=== PATIENT | male | born 1935 | race Caucasian/White ===

== ENCOUNTER → 2016-11-14 | Outpatient (CLI) | payer MEDICARE | END | disposition home or self-care (01) | LOC: PCVCCLINIC 10:35 | PROVIDERS: ATTEND Internal Medicine Cardiovascular Disease | DX: I10 Essential (primary) hypertension (principal); I25.5 Ischemic cardiomyopathy; E78.00 Pure hypercholesterolemia, unspecified; I73.9 Peripheral vascular disease, unspecified; I25.10 Atherosclerotic heart disease of native coronary artery without angina pectoris; I82.409 Acute embolism and thrombosis of unspecified deep veins of unspecified lower extremity; Z79.82 Long term (current) use of aspirin; Z87.891 Personal history of nicotine dependence; Z79.01 Long term (current) use of anticoagulants; Z79.899 Other long term (current) drug therapy | CPT/HCPCS: 80061; 85610; 93005; G0463 ==

== ENCOUNTER → 2017-08-30 | Outpatient (CLI) | payer MEDICARE | END | disposition home or self-care (01) | LOC: PCVCCLINIC 11:53 | DX: I10 Essential (primary) hypertension (principal); I25.10 Atherosclerotic heart disease of native coronary artery without angina pectoris; R55 Syncope and collapse; R29.6 Repeated falls; R09.89 Other specified symptoms and signs involving the circulatory and respiratory systems; I73.9 Peripheral vascular disease, unspecified; R94.31 Abnormal electrocardiogram [ECG] [EKG]; Z95.1 Presence of aortocoronary bypass graft; Z87.891 Personal history of nicotine dependence; Z79.899 Other long term (current) drug therapy; Z79.82 Long term (current) use of aspirin | CPT/HCPCS: 80061; 93005; G0463 ==

== ENCOUNTER → 2017-08-30 | Outpatient (CLI) | payer MEDICARE | END | disposition home or self-care (01) | LOC: PCVCIMAG 11:56 | DX: I65.23 Occlusion and stenosis of bilateral carotid arteries (principal); R55 Syncope and collapse; I10 Essential (primary) hypertension; I25.10 Atherosclerotic heart disease of native coronary artery without angina pectoris; I73.9 Peripheral vascular disease, unspecified; R29.6 Repeated falls; R09.89 Other specified symptoms and signs involving the circulatory and respiratory systems; I35.1 Nonrheumatic aortic (valve) insufficiency; R94.31 Abnormal electrocardiogram [ECG] [EKG]; Z79.899 Other long term (current) drug therapy; Z79.82 Long term (current) use of aspirin; Z79.01 Long term (current) use of anticoagulants; Z95.1 Presence of aortocoronary bypass graft | CPT/HCPCS: 80061; 93005; 93306; 93880; G0463 ==

== ENCOUNTER → 2018-04-17 | Outpatient (CLI) | payer MEDICARE | END | disposition home or self-care (01) | LOC: PCVCCLINIC 10:26 | PROVIDERS: ATTEND Internal Medicine Cardiovascular Disease | DX: I25.10 Atherosclerotic heart disease of native coronary artery without angina pectoris (principal); I25.5 Ischemic cardiomyopathy; I73.9 Peripheral vascular disease, unspecified; I82.409 Acute embolism and thrombosis of unspecified deep veins of unspecified lower extremity; I48.0 Paroxysmal atrial fibrillation; I12.9 Hypertensive chronic kidney disease with stage 1 through stage 4 chronic kidney disease, or unspecified chronic kidney disease; N18.3 Chronic kidney disease, stage 3 (moderate); E78.00 Pure hypercholesterolemia, unspecified; K21.9 Gastro-esophageal reflux disease without esophagitis; Z95.1 Presence of aortocoronary bypass graft; Z88.8 Allergy status to other drugs, medicaments and biological substances; Z79.82 Long term (current) use of aspirin; Z79.899 Other long term (current) drug therapy | CPT/HCPCS: 36415; 80061; 93005; G0463 ==

== ENCOUNTER → 2018-05-01 | Outpatient (CLI) | payer MEDICARE ==
[~2018-05-01] MED LIST: REGADENOSON 0.4 MG/5 ML DISP.SYRIN. IV ONE
--- NOTE | 2018-05-01 12:05 | PCVCIMAG ---
APPROVED REPORT Study performed: 05/01/2018 08:44:23 EXAM: Comprehensive 2D, Doppler, and color-flow Echocardiogram Patient Location: Echo lab Status: routine BSA: 2.23 HR: 84 bpmBP: 144/90 mmHg Rhythm: Atrial Fibrillation Other Information Study Quality: Adequate Indications Atrial Fibrillation CAD ischemic cardiomyopathy 2D Dimensions IVSd: 14.54 (7-11mm) LVDd: 50.02 mm PWd: 13.54 (7-11mm)Ascending Ao: 43.69 (22-36mm) LVDs: 38.33 (25-40mm) Left Atrium: 37.19 (27-40mm) Aortic Root: 42.34 mm LV Single Plane 4CH: 37.56 % LV Single Plane 2CH: 49.32 % Biplane EF: 44.5 % Volumes Left Atrial Volume (Systole) Single Plane 4CH: 77.07 mLSingle Plane 2CH: 106.72 mL LA ESV Index: 43.00 mL/m2 Aortic Valve AoV Peak Alejandro.: 1.26 m/s AO Peak Gr.: 6.36 mmHgLVOT Max P.17 mmHg LVOT Max V: 0.74 m/s AI Vmax: 5.43 m/s AI [place]: 3.27 m/s2 AI PHT: 483.91 ms Pulmonary Valve PV Peak Alejandro.: 0.72 m/sPV Peak Gr.: 2.09 mmHg Tricuspid Valve TR Peak Alejandro.: 2.51 m/s TR Peak Gr.: 25.22 mmHg Left Ventricle The left ventricle is normal size. There is normal LV segmental wall motion. Moderate concentric left ventricular hypertrophy. Left ventricular systolic function is mildly decreased globally. LVEF is 45%. This study is not technically sufficient to allow evaluation of the LV diastolic function due to atrial fibrillation. Right Ventricle The right ventricle is normal size. The right ventricular systolic function is normal. Atria Left atrium is moderately dilated. The right atrium size is normal. Aortic Valve The aortic valve is normal in structure. Moderate aortic regurgitation. There is no aortic valvular stenosis. Mitral Valve The mitral valve is normal in structure. There is no mitral valve regurgitation noted. No evidence of mitral valve stenosis. Tricuspid Valve The tricuspid valve is normal in structure. Mild tricuspid regurgitation with PAP of 32 mmHg. Pulmonic Valve The pulmonary valve is normal in structure. Mild pulmonic regurgitation. Great Vessels Aortic root is mildly dilated to 4.2 cm. The ascending aorta is mild-moderately dilated to 4.4 cm. IVC is normal in size and collapses >50% with inspiration. Pericardium There is no pericardial effusion. There is no pleural effusion. <Conclusion> The left ventricle is normal size. Moderate concentric left ventricular hypertrophy. LVEF is 45%. This study is not technically sufficient to allow evaluation of the LV diastolic function due to atrial fibrillation. The right ventricle is normal size. Left atrium is moderately dilated. Moderate aortic regurgitation. Moderate aortic regurgitation. There is no mitral valve regurgitation noted. Mild tricuspid regurgitation with PAP of 32 mmHg. Aortic root is mildly dilated to 4.2 cm. There is no pericardial effusion.
--- NOTE | 2018-05-01 16:42 | PCVCIMAG ---
APPROVED REPORT Imaging Protocol: Rest Tc-99m/Stress Tc-99m 1 day Study performed: 05/01/2018 10:29:11 Indication: CAD, Cardiomyopathy Patient Location: Out-Patient Stress Nurse: Rosalinda Daniel RN, Libby Rudd RN ME Tech:Jazmín Nick [facility] Ht: 5 ft 9 in Wt: 240 lbs BSA: 2.23 m2 HR: 75 bpm BP: 164/73 mmHg BMI: 35.4 Rhythm: Atrial Fibrillation Medical History Medical History: PVD, CAD Medications: ASA, Irbesartan-HCTZ, Bystolic, Crestor Allergies: Levaquin, Pravastatin Cardiac Risk Factors: Age Previous Cardiac Procedures: CABG Pretest Chest Pain Characteristics: No chest pain Exercise History: Sedentary Physical Disabilities: Back, uses a cane Meds Held (24 hrs): Bystolic Resting Data Rest SPECT myocardial perfusion imaging was performed in supine position 45 minutes following the intravenous injection of 10.6 mCi of Tc-99m Sestamibi. Time of rest injection: 0940 Date: 05/01/2018 Administration Route: IV Administration Site: Right AC Pharmacologic Stress Pharmacologic stress test was performed by injecting Regadenoson 0.4 mg IV push over 10-15 seconds immediately followed by the intravenous injection of 33.2 mCi of Tc-99m Sestamibi. Time of stress injection: 1100 Date: 05/01/2018 Administration Route: IV Administration Site: Right AC Gated Stress SPECT was performed 45 minutes after stress injection. The images were gated to evaluate regional wall motion and calculate left ventricular ejection fraction. Stress Test Details Stress Test: Pharmacologic stress testing performed using 0.4 mg of regadenoson per 5 mL given IV over 10 seconds. Reason for pharmacologic stress test: uses a cane. HRMax Heart Rate (APMHR): 137 bpm Resting HR: 75 bpmTarget HR (85% APMHR): 116 bpm Max HR Achieved: 99 bpm % of APMHR: 72 Recovery HR: 82 bpm BP Resting BP: 164/73 mmHg Max BP: 162/79 mmHg Recovery BP: 157/72 mmHg ECG Resting ECG: Atrial Fibrillation Stress ECG: Atrial Fibrillation Recovery ECG: Atrial Fibrillation Clinical Reason for Termination: Completed protocol Stress Symptoms: Dyspnea, Lightheaded Exercise duration: 0 min 55 sec Symptoms resolved during recovery. Stress ECG Conclusion ECG: Non-ischemic Study Quality Study: Good Study Data Post stress, the left ventricular ejection was 61%.. SSS: 0 SRS: 0 SDS: 0 TID = 1.14. Perfusion No evidence of stress induced ischemia or prior myocardial infarction. Wall Motion Normal left ventricular size and function with no regional wall motion abnormalities. Nuclear Conclusion No evidence of stress induced ischemia or prior myocardial infarction. Normal left ventricular size and function with no regional wall motion abnormalities. Post stress, the left ventricular ejection was 61%. No change since prior study dated January 2016. Interpreted by: Swapnil Varma MD Electronically Approved: 05/01/2018 15:30:50 <Conclusion> ECG: Non-ischemic
== END | disposition home or self-care (01) ==
LOC: PCVCIMAG 08:41
PROVIDERS: ATTEND Internal Medicine Cardiovascular Disease
DX: I08.2 Rheumatic disorders of both aortic and tricuspid valves (principal); I48.0 Paroxysmal atrial fibrillation; I25.10 Atherosclerotic heart disease of native coronary artery without angina pectoris; I25.5 Ischemic cardiomyopathy; I10 Essential (primary) hypertension; E78.00 Pure hypercholesterolemia, unspecified; Z95.1 Presence of aortocoronary bypass graft
CPT/HCPCS: 78452; 93017; 93306; A9500; J2785

== ENCOUNTER → 2018-10-17 | Outpatient (CLI) | payer MEDICARE | END | disposition home or self-care (01) | LOC: PCVCCLINIC 11:00 | PROVIDERS: ATTEND Internal Medicine Cardiovascular Disease | DX: I25.10 Atherosclerotic heart disease of native coronary artery without angina pectoris (principal); E78.00 Pure hypercholesterolemia, unspecified; I12.9 Hypertensive chronic kidney disease with stage 1 through stage 4 chronic kidney disease, or unspecified chronic kidney disease; N18.3 Chronic kidney disease, stage 3 (moderate); I82.409 Acute embolism and thrombosis of unspecified deep veins of unspecified lower extremity; I25.5 Ischemic cardiomyopathy; R60.9 Edema, unspecified; I87.2 Venous insufficiency (chronic) (peripheral); Z95.1 Presence of aortocoronary bypass graft; Z79.82 Long term (current) use of aspirin; Z87.891 Personal history of nicotine dependence | CPT/HCPCS: 36415; 80061; 93005; G0463 ==

== ENCOUNTER → 2018-11-05 | Outpatient (CLI) | payer MEDICARE ==
--- NOTE | 2018-11-05 17:52 | PCVCIMAG ---
EXAM: BILATERAL SUPERFICIAL VENOUS DUPLEX INDICATION: Leg pain and swelling. FINDINGS: Right leg: No thrombus in the common femoral vein. Nonocclusive chronic thrombus throughout main femoral vein and popliteal vein. Right Great Saphenous Vein: At the saphenofemoral junction the diameter is 8.3 mm, in the mid thigh it is 10.0 mm, and in the calf it is 8.0 mm. There is significant venous insufficiency/reflux throughout. Venous insufficiency/reflux duration is 1.1 seconds. Right Small Saphenous Vein: At the saphenopopliteal junction the diameter is 2.6 mm, and in the calf it is 5.2 mm. There is not significant venous insufficiency/reflux throughout. Venous insufficiency/reflux duration is 0 seconds. There is not a cranial extension present. Left leg: No thrombus in the common femoral, main femoral, or popliteal veins. These veins are compressible. Left Great Saphenous Vein: At the saphenofemoral junction the diameter is 7.4 mm, in the mid thigh it is surgically absent, and in the calf it is 3.0 mm. There is not significant venous insufficiency/reflux throughout. Venous insufficiency/reflux duration is 0 seconds. Left Small Saphenous Vein: At the saphenopopliteal junction the diameter is 3.9 mm, and in the calf it is 3.3 mm. There is not significant venous insufficiency/reflux throughout. Venous insufficiency/reflux duration is 0 seconds. There is not a cranial extension present. IMPRESSION: Right Great Saphenous Vein: Significant venous insufficiency/reflux is present as noted above. Right Small Saphenous Vein: No significant venous insufficiency/reflux is present as noted above. Left Great Saphenous Vein: No significant venous insufficiency/reflux is present as noted above. Vein surgically absent in thigh. Left Small Saphenous Vein: No significant venous insufficiency/reflux is present as noted above. Nonocclusive chronic thrombus throughout main femoral vein and popliteal vein. Incidental note is made of venous insufficiency/reflux in the right main femoral vein with duration of 1.3 seconds. Incidental note is made of venous insufficiency/reflux in the left popliteal vein with duration of 2.6 seconds. LOC:[place] [id number]
--- NOTE | 2018-11-05 17:55 | PCVCIMAG ---
EXAM: RIGHT LOWER EXTREMITY ARTERIAL DUPLEX INDICATION: Peripheral Arterial Disease. Leg pain. FINDINGS: Right Leg: Common femoral and profunda femoral arteries are patent. Distal redding superficial femoral artery and popliteal artery are occluded. Refilling at the level of the tibioperoneal trunk with posterior tibial and peroneal artery being patent. Anterior tibial artery is occluded. IMPRESSION: Distal redding right superficial femoral artery and popliteal artery are occluded. Right anterior tibial artery is occluded. LOC:[place] [id number]
== END | disposition home or self-care (01) ==
LOC: PCVCIMAG 14:49
PROVIDERS: ATTEND Internal Medicine Cardiovascular Disease
DX: I82.413 Acute embolism and thrombosis of femoral vein, bilateral (principal); I73.9 Peripheral vascular disease, unspecified; E78.00 Pure hypercholesterolemia, unspecified; M79.89 Other specified soft tissue disorders
CPT/HCPCS: 93926; 93970

== ENCOUNTER → 2018-11-19 | Outpatient (CLI) | payer MEDICARE | END | disposition home or self-care (01) | LOC: PCVCCLINIC 10:50 | PROVIDERS: ATTEND Nuclear Medicine Nuclear Cardiology | DX: I73.9 Peripheral vascular disease, unspecified (principal); I87.2 Venous insufficiency (chronic) (peripheral); I48.0 Paroxysmal atrial fibrillation; I12.9 Hypertensive chronic kidney disease with stage 1 through stage 4 chronic kidney disease, or unspecified chronic kidney disease; N18.3 Chronic kidney disease, stage 3 (moderate); I25.10 Atherosclerotic heart disease of native coronary artery without angina pectoris; I82.409 Acute embolism and thrombosis of unspecified deep veins of unspecified lower extremity; E78.00 Pure hypercholesterolemia, unspecified; E78.5 Hyperlipidemia, unspecified; Z88.8 Allergy status to other drugs, medicaments and biological substances | CPT/HCPCS: G0463 ==

== ENCOUNTER → 2019-03-06 | Outpatient (CLI) | payer OTHER ==
--- NOTE | 2019-03-06 09:44 | PCVCIMAG ---
EXAM: VENOUS DUPLEX INFERIOR VENA CAVA AND BILATERAL ILIAC VEINS INDICATION: Leg pain and swelling. FINDINGS: Inferior vena cava: IVC is patent where visualized. Right iliac: Common and external iliac veins are patent as is the common femoral vein. Left iliac: Common and external iliac veins are patent as is the common femoral vein. IMPRESSION: The inferior vena cava and bilateral iliac veins are patent where visualized. The right and left external iliac vein stents appear patent. LOC:[id number]
== END | disposition home or self-care (01) ==
LOC: PCVCIMAG 08:16
PROVIDERS: ATTEND Nuclear Medicine Nuclear Cardiology
DX: I73.9 Peripheral vascular disease, unspecified (principal); I87.1 Compression of vein; I87.2 Venous insufficiency (chronic) (peripheral); I82.409 Acute embolism and thrombosis of unspecified deep veins of unspecified lower extremity; I48.0 Paroxysmal atrial fibrillation; I25.10 Atherosclerotic heart disease of native coronary artery without angina pectoris; I12.9 Hypertensive chronic kidney disease with stage 1 through stage 4 chronic kidney disease, or unspecified chronic kidney disease; N18.3 Chronic kidney disease, stage 3 (moderate); I82.509 Chronic embolism and thrombosis of unspecified deep veins of unspecified lower extremity; E78.00 Pure hypercholesterolemia, unspecified; E78.5 Hyperlipidemia, unspecified; Z95.1 Presence of aortocoronary bypass graft; Z88.8 Allergy status to other drugs, medicaments and biological substances; Z87.891 Personal history of nicotine dependence; Z79.899 Other long term (current) drug therapy
CPT/HCPCS: 93976